=== PATIENT | female | born 1990 | race Hispanic/Latino ===

== ENCOUNTER 2024-05-07 16:47 | Emergency (ER) | payer BC ==
[~2024-05-07] VITALS: Ht 152.4 cm; Wt 86.2 kg
[2024-05-07 17:15] LABS: BASOPHILS # (AUTO) 0.02 K/uL (0.00-0.20); BASOPHILS % (AUTO) 0.3 % (0.0-5.0); EOSINOPHILS # (AUTO) 0.14 K/uL (0.00-0.70); EOSINOPHILS % (AUTO) 2.2 % (0.0-8.0); HEMATOCRIT 33.2 % (36-48); IMMATURE GRANULOCYTE ABSOLUTE 0.02 K/uL (0-1); LYMPHOCYTES # (AUTO) 1.8 K/uL (1.0-4.8); MEAN CORPUSCULAR HEMOGLOBIN 26.7 pg (27.0-33.0); MEAN CORPUSCULAR HGB CONC 31.9 g/dL (32.0-36.0); MEAN CORPUSCULAR VOLUME 83.6 fL (79-99); MONOCYTES # (AUTO) 0.5 K/uL (0.1-1.0); MONOCYTES % (AUTO) 7.8 % (3.0-13.0); NEUTROPHILS # (AUTO) 3.8 K/uL (1.8-7.7); NEUTROPHILS % (AUTO) 60.4 % (40.0-77.0); PLATELET COUNT (AUTO) 244 K/uL (130-400); RED BLOOD CELL COUNT(AUTO) 3.97 MIL/uL (4.00-5.50); RED CELL DISTRIBUTION WIDTH 13.7 % (11.0-15.5); WHITE BLOOD COUNT (AUTO) 6.3 K/uL (4.8-10.8)
[2024-05-07] MEDS: DEXAMETHASONE SOD PHOSPHATE 4 MG/ML 1ML VIAL IM ONE (17:18)
[2024-05-07] MEDS: ACETAMINOPHEN 500 MG TABLET PO ONE (17:19)
[2024-05-07 17:26] LABS: CREATININE 0.6 mg/dL (0.5-1.0); POTASSIUM 3.3 mmol/L (3.5-5.1)
[2024-05-07 17:35] LABS: ALBUMIN 3.3 g/dL (3.5-5.0); BILIRUBIN,TOTAL 0.1 mg/dL (0.2-1.0); MAGNESIUM 1.9 mg/dL (1.80-2.40)
[2024-05-07 18:05] VITALS: BP 114/48; PULSE 66; RESP 16; O2SAT 100
[2024-05-07] MEDS ORDERED: METH4TAB3 PO (18:41)
[2024-05-07] MEDS ORDERED: IBUP-2077 PO (18:41)
[2024-05-07] MEDS: POTASSIUM BICARB/CIT AC 25 MEQ TABLET.EFF PO ONE (18:44)
[2024-05-07 19:23] LABS: APPEARANCE,URINE CLEAR (CLEAR); BILIRUBIN,URINE NEGATIVE (NEGATIVE); COLOR,URINE LIGHT-YELLOW (YELLOW); GLUCOSE, URINE (UA) NEGATIVE (NEGATIVE); KETONES,URINE NEGATIVE (NEGATIVE); LEUKOCYTE ESTERASE ,URINE NEGATIVE Leu/uL (NEGATIVE); NITRATE,URINE NEGATIVE (NEGATIVE); OCCULT BLOOD,URINE NEGATIVE (NEGATIVE); PH,URINE 6.5 (5.0-8.0); PROTEIN,URINE NEGATIVE (NEGATIVE); UROBILINOGEN,URINE 0.2 mg/dL (0.2-1.0)
[2024-05-07 19:26] LABS: ADD UA MICROSCOPIC NO
== END 2024-05-07 18:49 | disposition home or self-care (01) ==
LOC: EDH 16:47
DX: M94.0 Chondrocostal junction syndrome [Tietze] (principal); E87.6 Hypokalemia; E66.9 Obesity, unspecified; Z68.34 Body mass index [BMI] 34.0-34.9, adult; Z91.048 Other nonmedicinal substance allergy status
CPT/HCPCS: 99284; 71045; 83735; 84484; 80053; 84703; 85025; 81003; 36415; 96372; 93005; J1100

== ENCOUNTER 2025-04-05 21:27 | Emergency (ER) | payer BC ==
[~2025-04-05] VITALS: Ht 154.9 cm; Wt 83.5 kg
[~2025-04-05 21:27] MED LIST: IBUP-2077 PO; METH4TAB3 PO
[2025-04-05 21:54] LABS: BASOPHILS # (AUTO) 0.02 K/uL (0.00-0.20); BASOPHILS % (AUTO) 0.3 % (0.0-5.0); EOSINOPHILS # (AUTO) 0.17 K/uL (0.00-0.70); EOSINOPHILS % (AUTO) 2.3 % (0.0-8.0); HEMATOCRIT 34.1 % (36-48); IMMATURE GRANULOCYTE ABSOLUTE 0.02 K/uL (0-1); LYMPHOCYTES # (AUTO) 1.8 K/uL (1.0-4.8); LYMPHOCYTES % (AUTO) 24.3 % (21.0-51.0); MEAN CORPUSCULAR HEMOGLOBIN 29.5 pg (27.0-33.0); MEAN CORPUSCULAR HGB CONC 33.4 g/dL (32.0-36.0); MEAN CORPUSCULAR VOLUME 88.1 fL (79-99); MONOCYTES # (AUTO) 0.6 K/uL (0.1-1.0); MONOCYTES % (AUTO) 8.7 % (3.0-13.0); NEUTROPHILS # (AUTO) 4.7 K/uL (1.8-7.7); NEUTROPHILS % (AUTO) 64.1 % (40.0-77.0); PLATELET COUNT (AUTO) 238 K/uL (130-400); RED BLOOD CELL COUNT(AUTO) 3.87 MIL/uL (4.00-5.50); RED CELL DISTRIBUTION WIDTH 12.5 % (11.0-15.5); WHITE BLOOD COUNT (AUTO) 7.4 K/uL (4.8-10.8)
[2025-04-05 21:58] LABS: ADD UA MICROSCOPIC YES; APPEARANCE,URINE TURBID (CLEAR); BILIRUBIN,URINE NEGATIVE (NEGATIVE); COLOR,URINE BROWN (YELLOW); GLUCOSE, URINE (UA) NEGATIVE (NEGATIVE); KETONES,URINE NEGATIVE (NEGATIVE); LEUKOCYTE ESTERASE ,URINE 500 Leu/uL (NEGATIVE); NITRATE,URINE NEGATIVE (NEGATIVE); OCCULT BLOOD,URINE LARGE (NEGATIVE); PROTEIN,URINE 100 mg/dL (NEGATIVE); UROBILINOGEN,URINE 0.2 mg/dL (0.2-1.0)
[2025-04-05 22:00] LABS: MUCUS,URINE MANY LPF (None Seen); RBC,URINE TNTC /HPF (0-1); SQUAMOUS EPITHELIAL CELL,UR MOD /HPF (0-2); UNCLASSIFIED CRYSTAL 5 /HPF (None Seen); WBC CLUMP MANY /HPF (0-1); WBC,URINE TNTC /HPF (0-1)
[2025-04-05 22:10] LABS: CREATININE 0.8 mg/dL (0.5-1.0); POTASSIUM 3.7 mmol/L (3.5-5.1)
[2025-04-05] MEDS: cefTRIAXone 1G VIAL IM ONE (22:55)
[2025-04-05] MEDS ORDERED: MACR100 PO (23:03)
--- NOTE | 2025-04-05 23:03 | ERN ---
General Chief Complaint: Abdominal Pain Stated Complaint: C/O ABD PAIN WITH PAIN AND BURNING WHEN VOIDING Time Seen by MD: 21:32 Time Seen by Midlevel: 21:32 Source: patient History of Present Illness Initial Comments The patient is a 34-year-old female who presents to the emergency department for evaluation of dysuria and suprapubic abdominal tenderness. She was also been feeling generalized body weakness. She does have a history of chronic anemia and recently started her menstrual cycle so she was concerned she might be severely anemic. She denies any other symptoms Allergies: Coded Allergies: iron (Unverified Allergy, Unknown, 05/07/24) Home Meds Active Scripts Nitrofurantoin/Nitrofuran Mac (Macrobid) 100 Mg Cap, 1 CAP PO BID for 5 Days, #10 CAP 0 Refills Prov:OSMIN CRYSTAL 04/05/25 Ibuprofen (Ibuprofen 800 mg Tab) 800 Mg Tab, 800 MG PO Q6H PRN for PAIN, #30 TAB Prov:CORETTA FARR NP 05/07/24 Methylprednisolone (Medrol) 4 Mg Tab.ds.pk, 4 MG PO ACHS, #1 UNIT Prov:CORETTA FARR NP 05/07/24 Past Medical History Past Medical History: Anemia Past Surgical History: None Female( History) History: Not Applicable LMP: April 05, 2025 ROS Dictation CONSTITUTIONAL: Negative except for HPI HEAD/FACE: Negative except for HPI EENT: Negative except for HPI RESPIRATORY: Negative except for HPI GASTROINTESTINAL/ABDOMINAL: Negative except for HPI GENITOURINARY: Negative except for HPI MUSCULOSKELETAL: Negative except for HPI INTEGUMENTARY: Negative except for HPI NEUROLOGICAL/PSYCH: Negative except for HPI HEMATOLOGIC/LYMPHATIC: Negative except for HPI All Systems Negative, Except as noted above. 13 point review of systems assessed and all negative except for above. Physical Exam Physical Exam Dictation Vital Signs reviewed General Appearance: Alert, oriented x 3, no acute distress, well developed, nourished. Head and Face: non-traumatic. Eyes: PERRL, pink conjunctivas, eyelid no trauma, anterior chamber with arcus senilis. Ears: Pinnas intact and no signs of trauma or erythema ear canals clear and no discharge TM no erythema Nose: No discharge, no bleeding. Oropharynx: Mouth normal, tongue pink, pharynx clear,no erythema, tonsils no exudates, no abscesses noted, mucous membrane moist Neck: Supple, non-tender, no thyromegaly, no masses, no JVD, no bruits Breast:Deferred Chest:No tenderness, no crepitus, no paradoxical movement, no retractions Lungs:Clear, well-ventilated, symmetric, no rales, no wheezing, no rhonchi, no stridor, good breath sounds bilaterally Heart: Regular rate, regular rhythm, no murmur, no gallops Vascular: no peripheral edema, Abdomen: Soft, positive bowel sounds, nondistended, no guarding, nontender, no rebound, no masses no hepatomegaly, no splenomegaly, no Hancock's sign, no hernias. Rectal: Deferred Genital: Deferred Neurological: Normal speech, motor function intact, sensory function intact Musculoskeletal: Neck nontender, full range of motion, back nontender, full range of motion, Extremities: nontender, full range of motion Skin: Color pink, dry, no turgor, no rash, no lacerations, no abrasions, no contusions. Lymphatic: Deferred Results Laboratory and Microbiology Lab and Micro Result Laboratory Tests Test 04/05/25 21:35 04/05/25 21:46 Urine Color BROWN (YELLOW) Urine Appearance TURBID (CLEAR) Urine pH 6.0 (5.0-8.0) Urine Specific Shirley 1.026 (1.001-1.031) Urine Protein 100 mg/dL (NEGATIVE) H Urine Glucose (UA) NEGATIVE mg/dL (NEGATIVE) Urine Ketones NEGATIVE mg/dL (NEGATIVE) Urine Occult Blood LARGE (NEGATIVE) H Urine Nitrate NEGATIVE (NEGATIVE) Urine Bilirubin NEGATIVE mg/dL (NEGATIVE) Urine Urobilinogen 0.2 mg/dL (0.2-1.0) Urine Leukocyte Esterase 500 Jolene/uL (NEGATIVE) H Urine RBC TNTC /HPF (0-1) H Urine WBC TNTC /HPF (0-1) H Urine WBC Clumps (Auto) MANY /HPF (0-1) Urine Squamous Epithelial Cells MOD /HPF (0-2) Urine Other Crystals (Auto) 5 /HPF (None Seen) Urine Bacteria None /HPF (None Seen) White Blood Count 7.4 K/uL (4.8-10.8) Red Blood Count 3.87 MIL/uL (4.00-5.50) L Hemoglobin 11.4 g/dL (12.0-16.0) L Hematocrit 34.1 % (36-48) L Mean Corpuscular Volume 88.1 fL (79-99) Mean Corpuscular Hemoglobin 29.5 pg (27.0-33.0) Mean Corpuscular Hemoglobin Concent 33.4 g/dL (32.0-36.0) Red Cell Distribution Width 12.5 % (11.0-15.5) Platelet Count 238 K/uL (130-400) Mean Platelet Volume 9.7 fL (7.5-10.5) Immature Granulocyte % (Auto) 0.3 % (0-1) Neutrophils (%) (Auto) 64.1 % (40.0-77.0) Lymphocytes (%) (Auto) 24.3 % (21.0-51.0) Monocytes (%) (Auto) 8.7 % (3.0-13.0) Eosinophils (%) (Auto) 2.3 % (0.0-8.0) Basophils (%) (Auto) 0.3 % (0.0-5.0) Neutrophils # (Auto) 4.7 K/uL (1.8-7.7) Lymphocytes # (Auto) 1.8 K/uL (1.0-4.8) Monocytes # (Auto) 0.6 K/uL (0.1-1.0) Eosinophils # (Auto) 0.17 K/uL (0.00-0.70) Basophils # (Auto) 0.02 K/uL (0.00-0.20) Absolute Immature Granulocyte (auto 0.02 K/uL (0-1) Nucleated Red Blood Cells 0.0 % (0.0-0.19) Sodium Level 139 mmol/L (136-145) Potassium Level 3.7 mmol/L (3.5-5.1) Chloride Level 104 mmol/L (101-111) Carbon Dioxide Level 31 mmol/L (21-32) Blood Urea Nitrogen 15 mg/dL (7-18) Creatinine 0.8 mg/dL (0.5-1.0) Glomerular Filtration Rate Calc 100 mL/min (>90) Random Glucose 102 mg/dL (70-105) Total Calcium 8.7 mg/dL (8.5-10.1) Serum Test, Qualitative NEGATIVE (NEGATIVE) MDM MDM: The patient is a 34-year-old female who presents to the emergency department for evaluation of dysuria and suprapubic abdominal tenderness. She was also been feeling generalized body weakness. She does have a history of chronic anemia and recently started her menstrual cycle so she was concerned she might be severely anemic. She denies any other symptoms Initial vital signs are stable. On physical examination the patient was in no acute distress. She was mild suprapubic abdominal tenderness with no rebound or guarding. CBC and chemistries were obtained. CBC shows chronic anemia with a hemoglobin of 11.4. Chemistries are unremarkable. Urinalysis consistent with infection. The patient was given ceftriaxone IM in the emergency department and will be discharged home with oral antibiotics. Differential diagnosis: Urinary tract infection, anemia, dehydration, electrolyte abnormality There are no social concerns with this patient. Prescription drug management Prescriptions will include: Macrobid Medical management and examination interpretation discussions were had by me with other qualified healthcare professionals as indicated for the patient's care. ED Course Orders Procedure Category Date Status Time Cbc With Differential LAB 04/05/25 Complete 21:39 Basic Metabolic Panel LAB 04/05/25 Complete 21:39 Urinalysis Profile LAB 04/05/25 Complete 21:39 Testing, LAB 04/05/25 Complete Serum Hcg 21:39 Culture Urine HELLEN 04/05/25 In Process 21:59 Ceftriaxone 1g Vial PHA 04/05/25 Complete (Rocephine 1g Inj) 23:00 Current Medications Medications (Trade) Dose Ordered Sig/Nelsy Route PRN Reason Start Time Stop Time Status Last Admin Dose Admin Ceftriaxone Sodium (ROCEphine 1G INJ) 1 gm ONCE ONCE IM 04/05/25 23:00 04/05/25 23:01 DC 04/05/25 22:55 Vital Signs Date Time Temp Pulse Resp B/P (MAP) Pulse Ox O2 Delivery O2 Flow Rate FiO2 04/05/25 22:06 98.4 71 20 116/70 98 Room Air* 0 21 04/05/25 21:30 98.4 71 20 116/70 98 Room Air DX & DISP Disposition: Discharge Departure Impression: Primary Impression: Urinary tract infection Condition: Stable Scripts Nitrofurantoin/Nitrofuran Mac (Macrobid) 100 Mg Cap 1 CAP PO BID for 5 Days, #10 CAP 0 Refills Prov: OSMIN CRYSTAL 04/05/25 Additional Instructions: Your blood work today revealed a hemoglobin level of 11.4. The remainder of your blood work is unremarkable. Your urinalysis shows evidence of infection. You were given antibiotics in the emergency department. I have given you a prescription for Macrobid which should help improve your symptoms over the next couple of days. Referrals: ABHAY DAVIS [employer] GRADER (PCP) Time of Disposition: 23:03 I have reviewed the case, and I agree with, Diagnosis and Plan I performed the substantive portion of the visit. I have reviewed and personally made and approve the management plan that is documented in the note by myself or the EULALIA. I acknowledge for responsibility for the patient's management plan. OSMIN CRYSTAL April 05, 2025 23:03
[2025-04-05 23:19] VITALS: BP 121/69; PULSE 71; RESP 20; TEMP 98.4; O2SAT 98
== END 2025-04-05 23:20 | disposition home or self-care (01) ==
LOC: EDH 21:27
DX: N39.0 Urinary tract infection, site not specified (principal)
CPT/HCPCS: 99284; 80048; 84703; 85025; 87086 ×2; 87186; 81001; 36415; 96372; J0696

== ENCOUNTER 2025-11-10 18:46 | Emergency (ER) | payer BC ==
[~2025-11-10] VITALS: Ht 154.9 cm; Wt 81.6 kg
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
[2025-11-10] MEDS: HYDROcodone/APAP 5/325 1 TAB TABLET PO ONE ×2 (20:00→22:49)
--- NOTE | 2025-11-10 22:09 | NUR ---
PT STATES SHE HAD TAKEN BEFORE AND HALLUCINATED. MILI ARELLANO AWARE
[2025-11-10] MEDS: SILVER SULFADIAZINE CREAM 50 GM TP ONE (23:38)
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
[2025-11-11 00:03] VITALS: BP 128/74; PULSE 82; RESP 18; TEMP 98.3; O2SAT 98
== END 2025-11-11 00:06 | disposition home or self-care (01) ==
LOC: EDH 18:46
DX: T24.212A Burn of second degree of left thigh, initial encounter (principal); T24.111A Burn of first degree of right thigh, initial encounter; L03.90 Cellulitis, unspecified; X11.8XXA Contact with other hot tap-water, initial encounter; Y93.89 Activity, other specified; Y92.89 Other specified places as the place of occurrence of the external cause; Y99.8 Other external cause status
CPT/HCPCS: 16020; 90471; 90714; 99284